=== PATIENT | female | born 1980 | race African-American/Black ===

== ENCOUNTER 2022-01-03 22:46 | Emergency (ER) | payer SELFPAY ==
[~2022-01-03] VITALS: Ht 160 cm; Wt 66.0 kg
[2022-01-04] MEDS ORDERED: TRAMADOL 50MG TABLET PO ONE
[2022-01-04 00:25] VITALS: BP 124/77
[2022-01-04] MEDS ORDERED: METH-773 MT (02:50)
[2022-01-04] MEDS ORDERED: IBUP-2029 MT (02:50)
[2022-01-04] MEDS ORDERED: LIDO1ADH5 TP (02:50)
== END 2022-01-04 03:03 | disposition home or self-care (01) ==
LOC: ER 22:46
DX: S16.1XXA Strain of muscle, fascia and tendon at neck level, initial encounter (principal); M79.18 Myalgia, other site; V49.59XA Passenger injured in collision with other motor vehicles in traffic accident, initial encounter; Y93.89 Activity, other specified; Y92.89 Other specified places as the place of occurrence of the external cause; Y99.8 Other external cause status
CPT/HCPCS: 73030; 81025; 99284

== ENCOUNTER 2022-02-19 22:55 | Emergency (ER) | payer SELFPAY ==
[~2022-02-19] VITALS: Ht 162.6 cm; Wt 63.5 kg
[~2022-02-19 22:55] MED LIST: IBUP-2029 MT; LIDO1ADH5 TP; METH-773 MT
[2022-02-20 00:30] LABS: BASOPHILS % 0.6 % (0.0-2.0); EOSINOPHILS % 6.2 % (0.0-5.0); HEMATOCRIT. 37.3 % (36.0-48.0); HEMOGLOBIN. 11.7 g/dL (12.0-16.0); LYMPHOCYTES % 30.7 % (20.0-50.0); MEAN CORPUSCULAR HEMOGLOBIN 22.9 pg (28.0-32.0); MEAN PLATELET VOLUME 7.6 fl (7.4-10.4); MONOCYTES % 9.5 % (2.0-8.0); PLATELET 347 x1000/uL (130-400); RED CELL DISTRIBUTION WIDTH 14.3 % (11.6-14.6)
[2022-02-20 00:36] LABS: CHLORIDE 105 mEq/L (98-107)
[2022-02-20 00:44] LABS: ETHANOL BLOOD < 10 mg/dL
[2022-02-20] MEDS ORDERED: IBUPROFEN 600MG TABLET PO ONE (00:45)
[2022-02-20 01:10] VITALS: BP 106/72
== END 2022-02-20 01:13 | disposition home or self-care (01) ==
LOC: ER 22:55
DX: M54.9 Dorsalgia, unspecified (principal); R10.9 Unspecified abdominal pain; Z88.0 Allergy status to penicillin; Z88.6 Allergy status to analgesic agent
CPT/HCPCS: 36415; 80053; 80320; 85025; 99283; G0480